=== PATIENT | female | born 1980 | race Caucasian/White ===

== ENCOUNTER 2017-01-27 19:26 | Emergency (ER) | payer OTHER ==
[~2017-01-27] VITALS: Ht 157.5 cm; Wt 68.2 kg
[2017-01-27 19:40] VITALS: BP 139/87; PULSE 78; RESP 24; O2SAT 98
[2017-01-27 20:57] LABS: BASOPHILS % (AUTO) 0.3 % (0-3); EOSINOPHILS % (AUTO) 1.1 % (0-5); MONOCYTES % (AUTO) 7.3 % (4-12); Mean Corpuscular Hemoglobin 29.7 pg (27.0-35.0); Mean Corpuscular Volume 91.7 fL (81-100); Platelet Count 271 bil/L (150-400)
--- NOTE | 2017-01-27 21:08 | ED.REPORT ---
HPI-Abd Pain F Under 38 Date of Service Jan 27, 2017 ED Provider: Dr. Cates Pt is a healthy 36 year old female presenting to the ED complaining of bilateral "kidney" pain. She indicates her low back as the site of pain. Associated symptoms include hematuria, frequent urination, nausea, and vomiting. She denies hx of kidney stones, fever, chills, cough, SOB, or wheezing. Nursing Notes Stated Complaint: POSS KIDNEY STONES Chief Complaint: Female Abdominal Pain Nursing Notes Reviewed: Yes Allergies: Coded Allergies: No Known Allergies (Unverified , 01/27/17) Scheduled Cefuroxime Axetil (Cefuroxime) 500 Mg Tablet 500 MG PO BID Scheduled PRN Ondansetron ODT (Ondansetron ODT) 4 Mg Tab.rapdis 4 MG PO QID PRN PRN For Nausea General Time Seen by MD: 21:08 Chief Complaint Flank pain right, Flank pain left Hx Obtained From: Patient Arrived By: Walk-in Sudden in Onset?: No Symptom Duration: Since onset Progression since Onset: Constant Location: : Flank left: Flank right Quality: Painful Severity: Current: Moderate Severity: Maximum: Severe Recent Healthcare: No recent hospitalization, Recent doctor visit Similar Sx Previous: No Past Medical History Past Medical History healthy Past Surgical History denies Smoking History Current Some Day Smoker Ambulatory Status Independent Review of Systems Constitutional: Denies: Chills, Fever Respiratory: Denies: Non-productive cough, Shortness of breath, Wheezing GI: Reports: Nausea, Vomiting Female: Reports: Flank pain, Hematuria, Urinary frequency Complete sys rev & neg: except as marked. Physical Exam Initial Vital Signs Vital Signs (First) Date Time Temp Pulse Resp B/P Pulse Ox O2 Delivery O2 Flow Rate FiO2 01/27/17 19:40 36.7 78 24 139/87 98 Room Air Initial VS: Reviewed Head / Eyes: Atraumatic, Normocephalic, PERRL ENT: Mucous membranes moist, Conjunctiva normal, No scleral icterus Neck: Supple, Non-tender, Full range of motion Extremities: Vascular intact, Neuro intact, No swelling, No tenderness Skin: Warm, Dry, No cyanosis Neurologic: Alert, Oriented, Nonfocal Psychiatric: Mood/affect normal, Behavior normal, Normal thought content General/Constitutional: Awake, Alert, No acute distress Respiratory / Chest: Breath sounds NL, Breath sounds = bilat, No respiratory distress, No rales, No rhonchi, No wheezing Cardiovascular: Heart rate NL, Regular rhythm, Heart sounds NL, Peripheral circulation NL Abdomen: Atraumatic, No guarding, No rebound Mild lower abdominal tenderness Back: Atraumatic Mild bilateral flank tenderness Interpretation & Diagnostics Lab Results Interpretation Result Diagram: 01/27/17204501/27/172045 Test 01/27/17 18:00 01/27/17 20:46 Urine Color Bloody (YELLOW) Urine Appearance Clear (CLEAR,HAZY) Urine pH 6.5 (5.0-8.0) Urine Specific [place] 1.020 (1.003-1.035) Urine Protein 300mg/dL (NEG,TRACE) Urine Glucose (UA) 500mg/dL (NEGATIVE) Urine Ketones 15mg/dL (NEGATIVE) Urine Occult Blood Trace (NEGATIVE) Urine Nitrite Positive (NEGATIVE) Urine Bilirubin Moderate (NEGATIVE) Urine Ictotest Positive (Negative) Urine Urobilinogen 8.0mg/dL (NORMAL) Urine Leukocyte Esterase Moderate (NEGATIVE) Urine RBC 0-2/hpf (0-2) Urine WBC 6-10/hpf (0-5) Urine Epithelial Cells None/hpf (NONE-MOD) Urine Crystals None seen (NONE SEEN) Urine Bacteria Moderate/hpf (NONE-FEW) Urine Hyaline Casts None/lpf (NONE) Urine Granular Casts None seen (NONE SEEN) Urine Waxy Casts None seen (NONE SEEN) Urine Red Blood Cell Casts None seen (NONE SEEN) Urine White Blood Cell Casts None seen (NONE SEEN) Urine Mucus None seen (None Seen) Urine Trichomonas None seen (NONE SEEN) Urine Yeast None (NONE SEEN) Urinalysis Comment None Urine Culture Reflexed Indicated White Blood Count 12.4th/mm3 (3.8-10.1) Red Blood Count 4.34mil/mm3 (3.90-5.20) Hemoglobin 12.9g/dL (12.0-15.6) Hematocrit 39.8% (35.0-46.0) Mean Corpuscular Volume 91.7fL (81-100) Mean Corpuscular Hemoglobin 29.7pg (27.0-35.0) Mean Corpuscular Hemoglobin Concent 32.4% (32.0-37.0) Red Cell Distribution Width 13.6% (12.3-15.4) Platelet Count 271bil/L (150-400) Neutrophils (%) (Auto) 81.0% (40-74) Lymphocytes (%) (Auto) 10.1% (14-46) Monocytes (%) (Auto) 7.3% (4-12) Eosinophils (%) (Auto) 1.1% (0-5) Basophils (%) (Auto) 0.3% (0-3) Sodium Level 140mEq/L (134-144) Potassium Level 4.1mEq/L (3.5-5.2) Chloride Level 103mEq/L (97-108) Carbon Dioxide Level 23mmol/L (18-29) Blood Urea Nitrogen 14mg/dL (6-20) Creatinine 1.08mg/dL (0.57-1.00) Estimat Glomerular Filtration Rate 81mL/min (>59) Glucose Level 129mg/dL (60-99) Calcium Level 10.0mg/dL (8.5-10.1) Magnesium Level 2.1mg/dL (1.6-2.6) Total Bilirubin 0.5mg/dL (0.0-1.2) Aspartate Amino Transf (AST/SGOT) 20U/L (0-50) Alanine Aminotransferase (ALT/SGPT) 32U/L (0-32) Alkaline Phosphatase 79U/L (25-150) Total Protein 8.3g/dL (6.4-8.4) Albumin 4.5g/dL (3.4-5.0) Lipase 46U/L (13-60) Hold Pretty Top Tube Received (Received) Re-Eval/Medical Decision Med Decision/Clinical Course Med Decision/Clinical Course: 1-year-old with left worse than right abdominal and side pain, any UTI by criteria in her urine. No indication of kidney stone with no history, bilateral pain, no hematuria, and a more likely alternative explanation of her UTI with upper tract disease. Rocephin IV with Ceftin fall. Fluids rest follow-up with PCP. Re-Evaluation/Progress : Time of Eval: 22:42 Patient Status: Condition improved Re-Evaluation/Progress Note: Discussed lab results and plan for discharge. Pt understands and agrees. All pt questions addressed. Counseled Regarding: Diagnosis, Lab results, Need for follow-up, When/why to return to ED Discharge & Departure Primary Impression: UTI (urinary tract infection) Urinary tract infection type: site unspecified Hematuria presence: with hematuria Qualified Code: N39.0 - Urinary tract infection, site not specified Additional Impression: Pyelonephritis Disposition: Home Discharge Condition All VS Reviewed: Yes Condition: Improved Patient Instructions: Kidney Infection (ED), Urinary Tract Infection in Women ( ED) Additional Instructions: Begin Ceftin twice daily for ten days. Drink plenty of fluids and maintain your hydration and high urine flow. Follow-up with your doctor in the office. Return if you develop fever despite treatment, developed nausea and vomiting and cannot keep your medicines down, or any other new symptoms of concern. Zofran if needed for nausea, up to four times daily. Referrals: Erin Lisa MD (PCP) Robert Attestation Portions of this note were transcribed by Geeta Gomez. I, Dr. Cates personally performed the history, physical exam and medical decision-making; I reviewed and confirmed the accuracy of the information in the transcribed note. Signed by: Robert Miranda, 01/27/2017. copies to: Erin Lisa MD, Christopher W MD Jan 27, 2017 21:08 GEETA GOMEZ Jan 27, 2017 21:15
[2017-01-27 21:19] LABS: APPEARANCE,URINE CLEAR (CLEAR,HAZY); COLOR,URINE BLOODY (YELLOW); PH,URINE 6.5 (5.0-8.0)
[2017-01-27 21:20] LABS: ICTOTEST,URINE POSITIVE (Negative); OCCULT BLOOD,URINE TRACE (NEGATIVE)
[2017-01-27] MEDS ORDERED: 0.9% Sodium Chloride 1,000 ML IV ONE (21:20)
[2017-01-27] MEDS ORDERED: Ondansetron 2 mg/mL 2 mL Inj IVPUSH ONE (21:20)
[2017-01-27 21:23] LABS: Magnesium 2.1 mg/dL (1.6-2.6)
[2017-01-27] MEDS ORDERED: cefTRIAXone Inj 2,000 MG in Dextrose 5% Minibag Plus 50 ML IV ONE (21:45)
[2017-01-27 22:44] VITALS: BP 110/66; PULSE 70; RESP 18; O2SAT 96
[2017-01-27] MEDS ORDERED: ONDA4TAB12 PO (22:48)
[2017-01-27] MEDS ORDERED: CEFU500T61 PO (22:48)
== END 2017-01-27 23:45 | disposition home or self-care (01) ==
LOC: SED 19:26
DX: N39.0 Urinary tract infection, site not specified (principal); N10 Acute pyelonephritis; F17.200 Nicotine dependence, unspecified, uncomplicated
CPT/HCPCS: 36415; 80053; 81000; 83690; 83735; 85025; 87086; 96361; 96365; 96375; 99285; J0696; J1885; J2405; J7030